=== PATIENT | female | born 1965 | race African-American/Black ===

== ENCOUNTER 2018-02-09 14:18 | Emergency (ER) | payer MEDICAID ==
[~2018-02-09] VITALS: Ht 165.1 cm; Wt 69.0 kg
[~2018-02-09 14:18] MED LIST: CLIN300C3; TRAMADOL; VICODIN
[2018-02-09] MEDS ORDERED: KETOROLAC 60MG/2ML VIAL IM ONE (15:15)
[2018-02-09] MEDS ORDERED: KETOROLAC 60MG/2ML VIAL IM NR (21:15)
[2018-02-09 22:09] VITALS: BP 139/88
== END 2018-02-09 22:21 | disposition home or self-care (01) ==
LOC: ER 17:48
DX: M54.41 Lumbago with sciatica, right side (principal); M54.42 Lumbago with sciatica, left side; Z88.2 Allergy status to sulfonamides; Z98.890 Other specified postprocedural states
CPT/HCPCS: 96372; 99283; J1885

== ENCOUNTER 2018-11-18 08:02 | Emergency (ER) | payer MEDICAID ==
[~2018-11-18] VITALS: Ht 165.1 cm; Wt 69.0 kg
[2018-11-18] MEDS ORDERED: IPRATROPIUM BROMIDE (0.02%) 0.5MG/2.5ML NEB HHN STA (08:20)
[2018-11-18] MEDS ORDERED: METHYLPREDNISOLONE SOD SUCC 125 MG/2 ML VIAL IV STA (08:20)
[2018-11-18] MEDS ORDERED: ALBUTEROL (0.083%) 2.5MG/3ML NEB HHN STA (08:20)
[2018-11-18 08:44] LABS: BASOPHILS % 0.8 % (0.0-2.0); EOSINOPHILS % 6.3 % (0.0-5.0); HEMATOCRIT. 41.9 % (36.0-48.0); LYMPHOCYTES % 19.1 % (20.0-50.0); MEAN CORPUSCULAR HEMOGLOBIN 28.5 pg (28.0-32.0); MEAN CORPUSCULAR VOLUME 84.9 fL (81.0-99.0); MEAN PLATELET VOLUME 7.4 fl (7.4-10.4); MONOCYTES % 12.8 % (2.0-8.0); PLATELET 270 x1000/uL (130-400); RED BLOOD CELL COUNT 4.94 mill/uL (4.2-5.4); RED CELL DISTRIBUTION WIDTH 14.5 % (11.6-14.6)
[2018-11-18 08:50] LABS: CHLORIDE 104 mEq/L (98-107)
[2018-11-18 08:53] LABS: PARTIAL THROMBOPLASTIN TIME 30.9 sec (23.4-31.0); PROTHROMBIN TIME 10.5 sec (9.1-11.1)
[2018-11-18 09:01] LABS: CLARITY URINE CLEAR (CLEAR); COLOR URINE YELLOW (YELLOW); KETONES URINE NEGATIVE (NEGATIVE); LEUKOCYTE ESTERASE URINE NEGATIVE (NEGATIVE); NITRITE URINE NEGATIVE (NEGATIVE); OCCULT BLOOD URINE 1+ (NEGATIVE); PH URINE 6.5 (4.5-8.0); PROTEIN URINE NEGATIVE (NEGATIVE); SPECIFIC GRAVITY URINE 1.006 (1.005-1.030); UROBILINOGEN URINE 0.2 E.U./dL (0.2-1.0)
[2018-11-18] MEDS ORDERED: SODIUM CHLORIDE 0.9% 1,000 ML IV ONE (09:18)
[2018-11-18] MEDS ORDERED: MAGNESIUM 2 G PREMIX 50 ML IV ONE (09:30)
[2018-11-18 09:32] LABS: *BARBITURATES SCREEN URINE NEGATIVE (NEGATIVE); *BENZODIAZEPINES SCREEN URINE NEGATIVE (NEGATIVE); *COCAINE SCREEN URINE NEGATIVE (NEGATIVE); METHADONE URINE SCREEN NEGATIVE (NEGATIVE); OPIATES URINE SCREEN NEGATIVE (NEGATIVE)
[2018-11-18 09:33] LABS: *AMPHETAMINES SCREEN URINE NEGATIVE (NEGATIVE); CANNABINOID URINE SCREEN NEGATIVE (NEGATIVE); PHENCYCLIDINE URINE SCREEN NEGATIVE (NEGATIVE)
[2018-11-18 10:51] VITALS: BP 167/90
== END 2018-11-18 10:59 | disposition home or self-care (01) ==
LOC: ER 09:42
DX: J44.1 Chronic obstructive pulmonary disease with (acute) exacerbation (principal); I10 Essential (primary) hypertension; F12.10 Cannabis abuse, uncomplicated; M54.30 Sciatica, unspecified side; Z88.2 Allergy status to sulfonamides
CPT/HCPCS: 36415; 71045; 80053; 80305; 81003; 83605; 83690; 83880; 84145; 84484; 85025; 85610; 85730; 87040; 93005; 96374; 99284; J2930; J7030

== ENCOUNTER 2019-07-06 15:24 | Emergency (ER) | payer MEDICAID ==
[~2019-07-06] VITALS: Ht 165.1 cm; Wt 70.0 kg
[2019-07-06] MEDS ORDERED: TRAMADOL 50MG TABLET PO ONE (17:15)
[2019-07-06 17:50] VITALS: BP 139/76
== END 2019-07-06 19:06 | disposition home or self-care (01) ==
LOC: ER 15:24
DX: R07.89 Other chest pain (principal); M25.512 Pain in left shoulder; R05 Cough; Z98.51 Tubal ligation status; Z98.890 Other specified postprocedural states; Z88.2 Allergy status to sulfonamides
CPT/HCPCS: 71045; 73030; 93005; 99283

== ENCOUNTER 2020-02-24 12:02 | Emergency (ER) | payer MEDICAID ==
[~2020-02-24] VITALS: Ht 165.1 cm; Wt 71.2 kg
[2020-02-24] MEDS ORDERED: PREDNISONE 20MG TABLET PO ONE (13:00)
[2020-02-24] MEDS ORDERED: ALBUTEROL (0.083%) 2.5MG/3ML NEB HHN ONE (13:00)
[2020-02-24 15:18] VITALS: BP 140/85
== END 2020-02-24 15:22 | disposition home or self-care (01) ==
LOC: ER 12:26
DX: J06.9 Acute upper respiratory infection, unspecified (principal); G89.29 Other chronic pain; M54.9 Dorsalgia, unspecified; Z98.890 Other specified postprocedural states; Z88.2 Allergy status to sulfonamides
CPT/HCPCS: 71045; 94640; 99283; J7512; Z7610